=== PATIENT | male | born 1995 | race Caucasian/White ===

== ENCOUNTER 2016-08-10 21:55 | Emergency (ER) | payer OTHER ==
--- NOTE | ~2016-08-10 | ER ---
PATIENT'S NAME: HUSEYIN CORTEZ [facility] AGE: 20 Y [address] ROOM: [place] [id number] LOCATION: [facility] ADMIT DATE: 08/10/2016 ER/Outpatient Report DISCHARGE DATE: 08/10/2016 FAMILY PHYSICIAN: Physician, Unknown ATTENDING PHYSICIAN: Eugene France Time of Arrival: 2153 hours. Time of Exam: 2200 hours. CHIEF COMPLAINT: Lip injury. HISTORY OF PRESENT ILLNESS: The patient states approximately 1 hour prior to arrival, he was playing basketball when he got hit in the face with an elbow. He has a cut to the left upper lip on the inside. Denies any other injury with the incident. Denies having any feeling of loose teeth. Did not have any loss of consciousness. ALLERGIES: AMOXICILLIN. MEDICATIONS: None. PAST MEDICAL HISTORY: None. PAST SURGERIES: None. SOCIAL HISTORY: He is a student at [employer]. Denies use of tobacco, drugs, or alcohol. REVIEW OF SYSTEMS: All negative other than those mentioned in the HPI. PHYSICAL EXAMINATION: VITAL SIGNS: He states he is 5 feet 10 inches. He weighs 66.7 kg. Blood pressure is 134/78, pulse is 62, respirations 16, temperature of 99.6, O2 saturation is 98% on room air. [place] Coma Scale is 15. GENERAL: He is awake, alert, and oriented x4. SKIN: [place], warm, and dry. RESPIRATIONS: Even and nonlabored. Lung sounds are clear throughout. PATIENT'S NAME: HUSEYIN CORTEZ [facility] AGE: 20 Y [address] ROOM: [place] [id number] LOCATION: [facility] ADMIT DATE: 08/10/2016 ER/Outpatient Report DISCHARGE DATE: 08/10/2016 FAMILY PHYSICIAN: Physician, Unknown ATTENDING PHYSICIAN: Eugene France HEART: Regular rate and rhythm. The patient has a small flap-type laceration to the left upper inner lip with minimal gaping. IMPRESSION: Inner lip laceration. PLAN: Discussed with patient that we will allow to heal on its own. Recommended that he rinse his mouth frequently. Take Tylenol as needed for discomfort. If he notices any signs and symptoms of infection, he should have it re- evaluated. He verbalized understanding. OLIVER AVENDANO MD DJ/jonny /[id number] d: 08/11/16 0130 t: 08/16/16 1232, OUTPATIENT REPORT
== END 2016-08-10 22:17 | disposition disaster alternative care site (69) ==
LOC: GMED 21:55
DX: S01.511A Laceration without foreign body of lip, initial encounter (principal); Z88.1 Allergy status to other antibiotic agents; W50.0XXA Accidental hit or strike by another person, initial encounter; Y93.67 Activity, basketball; Y99.8 Other external cause status